=== PATIENT | male | born 1960 | race Caucasian/White ===

== ENCOUNTER 2016-10-09 07:22 | Observation (INO) | payer OTHER ==
[~2016-10-09] VITALS: Ht 172.7 cm; Wt 112.4 kg
[~2016-10-09 07:22] MED LIST: ASPI-496 PO; CHOL100018 PO; CYAN1TAB29 PO; GLUC1TAB55 PO; MULT-658 PO; NAPR220C2 PO; OMEG1CAP24 PO; OMEP-110 PO
[2016-10-09 07:45] VITALS: BP 153/111
[2016-10-09] MEDS ORDERED: SODIUM CHLORIDE 0.9% 1,000 ML IV SCH (07:55)
[2016-10-09] MEDS ORDERED: ASPIRIN 325 MG TABLET EC PO ONE (08:00)
[2016-10-09] MEDS ORDERED: ASPIRIN 325 MG TABLET EC ONE (08:00)
[2016-10-09] MEDS ORDERED: APRE30TA2 PO (08:02)
[2016-10-09] MEDS ORDERED: VERAPAMIL 2.5 MG/ML, 2ML ONE (09:23)
[2016-10-09] MEDS ORDERED: FENTANYL PF 100 MCG/2ML ONE (09:23)
[2016-10-09] MEDS ORDERED: LIDOCAINE 2%, 20ML ONE (09:23)
[2016-10-09] MEDS ORDERED: MIDAZOLAM 1 MG/ML, 5ML ONE (09:23)
[2016-10-09] MEDS ORDERED: TICAGRELOR 90 MG TABLET ONE (09:23)
[2016-10-09] MEDS ORDERED: BIVALIRUDIN 250 MG ONE ×2 (09:23→10:18)
[2016-10-09] MEDS ORDERED: HEPARIN 1,000 UNITS/ML, 10ML ONE (09:23)
[2016-10-09] MEDS ORDERED: ONDANSETRON 2MG/ML, 2ML IVPush PRN (11:00)
[2016-10-09] MEDS ORDERED: BIVALIRUDIN 250 MG in DEXTROSE 5% 50 ML IV SCH (11:00)
[2016-10-09] MEDS: SODIUM CHLORIDE 0.9% 1,000 ML IV SCH ×2 (12:50→22:14)
[2016-10-09 18:59] VITALS: BP 133/84
[2016-10-09] MEDS ORDERED: ZOLPIDEM 5MG TABLET PO PRN (21:00)
[2016-10-09] MEDS: APREMILAST 30 MG PO SCH (22:14)
[2016-10-09] MEDS: TICAGRELOR 90 MG TABLET PO SCH (22:29)
[2016-10-10 01:17] VITALS: BP 135/83
[2016-10-10] MEDS: SODIUM CHLORIDE 0.9% 1,000 ML IV SCH (02:50)
[2016-10-10 05:03] LABS: BLOOD UREA NITROGEN 13 mg/dL (7-18)
[2016-10-10] MEDS: TICAGRELOR 90 MG TABLET PO SCH (07:23)
[2016-10-10] MEDS: APREMILAST 30 MG PO SCH (07:25)
[2016-10-10] MEDS ORDERED: OMEPRAZOLE 20 MG CAPSULE.DR PO SCH (07:30)
[2016-10-10 07:56] VITALS: BP 136/88
[2016-10-10] MEDS ORDERED: ASPIRIN 81 MG TABLET EC PO SCH (09:00)
[2016-10-10] MEDS ORDERED: NAPROXEN 500 MG TABLET PO SCH (09:00)
[2016-10-10] MEDS ORDERED: OMEGA-3/FISH OIL CAPSULE PO SCH (09:00)
[2016-10-10] MEDS ORDERED: MULTIVITAMIN 1 TABLET PO SCH (09:00)
[2016-10-10] MEDS ORDERED: TICA90TA PO (09:31)
== END 2016-10-10 10:30 | disposition home or self-care (01) ==
LOC: CACL 07:22 → ORIP 10:50 → 5SO 11:30
PROVIDERS: ADMIT Internal Medicine Cardiovascular Disease; ATTEND Internal Medicine Cardiovascular Disease
DX: I25.110 Atherosclerotic heart disease of native coronary artery with unstable angina pectoris (principal); T82.855A Stenosis of coronary artery stent, initial encounter; I25.41 Coronary artery aneurysm; F17.210 Nicotine dependence, cigarettes, uncomplicated; Z98.61 Coronary angioplasty status; Y83.1 Surgical operation with implant of artificial internal device as the cause of abnormal reaction of the patient, or of later complication, without mention of misadventure at the time of the procedure
CPT/HCPCS: 36415; 80048; 82040; 85018; 93005; 93458; 96365; C1725; C1769; C1874; C1887; C1894; C9600; G0378; J0583; J1644; J2250; J3010; J3490; Q9967

== ENCOUNTER 2017-10-29 20:05 | Emergency (ER) | payer OTHER ==
[~2017-10-29] VITALS: Ht 172.7 cm; Wt 115.1 kg
[~2017-10-29 20:05] MED LIST changes: +APRE30TA2 PO; +CHOL100012 PO; -CHOL100018 PO; +TICA90TA PO
[2017-10-29] MEDS ORDERED: ASPIRIN 81 MG TABLET CHEW PO ONE (20:30)
[2017-10-29] MEDS ORDERED: EZET1TAB30 PO (20:46)
[2017-10-29] MEDS ORDERED: PLAVIX (20:46)
[2017-10-29] MEDS ORDERED: NAPR220C2 PO (20:46)
[2017-10-29 20:49] LABS: BASOPHILS # (AUTO) 0.03 x10^3/uL (0-0.1); BASOPHILS % (AUTO) 0 % (0-1); EOSINOPHILS # (AUTO) 0.08 x10^3/uL (0-0.4); EOSINOPHILS % (AUTO) 1 % (1-7); LYMPHOCYTES # (AUTO) 2.33 x10^3/uL (1-3.4); LYMPHOCYTES % (AUTO) 19 % (22-44); MD NO; MEAN CORPUSCULAR HEMOGLOBIN 30.3 pg (27.5-34.5); MEAN CORPUSCULAR HGB CONC 34.3 g/dL (33.2-36.2); MEAN CORPUSCULAR VOLUME 88.4 fL (81-97); MEAN PLATELET VOLUME 8.7 fL (7.4-10.4); MONOCYTES # (AUTO) 0.91 x10^3/uL (0.2-0.8); MONOCYTES % (AUTO) 7 % (2-9); NEUTROPHILS # (AUTO) 8.97 x10^3/uL (1.8-6.8); NEUTROPHILS % (AUTO) 73 % (42-75); PLATELET COUNT 170 x10^3/uL (130-400); RED CELL DISTRIBUTION WIDTH 13.1 % (9.4-14.8)
[2017-10-29 20:55] LABS: ALANINE AMINOTRANSFERASE 87 U/L (12-78); ALBUMIN 4.2 g/dL (3.4-5.0); ANION GAP 9 mmol/L (5-15); CALCIUM 9.2 mg/dL (8.5-10.1); CHLORIDE 108 mmol/L (98-107); CREATININE 1.23 mg/dL (0.7-1.3)
[2017-10-29 20:59] LABS: ALKALINE PHOSPHATASE 99 U/L (45-117); BILIRUBIN,TOTAL 1.1 mg/dL (0.2-1.0); TOTAL PROTEIN 7.9 g/dL (6.4-8.2); TROPONIN I < 0.015 ng/mL (0.000-0.045)
[2017-10-29 21:42] VITALS: BP 124/84
== END 2017-10-29 22:46 | disposition home or self-care (01) ==
LOC: ED 21:23
DX: R07.89 Other chest pain (principal); K21.9 Gastro-esophageal reflux disease without esophagitis; Z87.891 Personal history of nicotine dependence; Z79.82 Long term (current) use of aspirin
CPT/HCPCS: 36415; 71045; 80053; 83690; 84484; 85025; 93005; 99285

== ENCOUNTER → 2018-02-14 | Outpatient (CLI) | payer OTHER ==
[~2018-02-14] MED LIST changes: +EZET1TAB30 PO; +PLAVIX; +REGADENOSON 0.4 MG/5 ML SYRINGE ONE
== END | disposition home or self-care (01) ==
LOC: CFH 12:06 → EDSTATUS 12:30
PROVIDERS: ATTEND Internal Medicine Cardiovascular Disease
DX: Z01.810 Encounter for preprocedural cardiovascular examination (principal); Z87.891 Personal history of nicotine dependence
CPT/HCPCS: 78452; 93017; A9502; J2785

== ENCOUNTER 2018-06-29 14:44 | Inpatient (IN) | payer OTHER ==
[~2018-06-29] VITALS: Ht 172.7 cm; Wt 109.5 kg
[~2018-06-29 14:44] MED LIST changes: -REGADENOSON 0.4 MG/5 ML SYRINGE ONE
[2018-06-29] MEDS ORDERED: LACTATED RINGERS 1,000 ML IV SCH (15:25)
[2018-06-29] MEDS ORDERED: GABAPENTIN 300 MG CAPSULE PO ONE (15:30)
[2018-06-29] MEDS ORDERED: ACETAMINOPHEN 500 MG TABLET PO ONE (15:30)
[2018-06-29] MEDS ORDERED: ATOR40TA78 PO (15:33)
[2018-06-29] MEDS ORDERED: RIVA20TA PO (15:33)
[2018-06-29] MEDS ORDERED: MUPIROCIN NAS (15:33)
[2018-06-29 15:53] VITALS: BP 121/87
[2018-06-29] MEDS ORDERED: PLEASE ENTER HEIGHT AND WEIGHT MC SCH (16:00)
[2018-06-29 16:04] LABS: BASOPHILS # (AUTO) 0.05 x10^3/uL (0-0.1); BASOPHILS % (AUTO) 1 % (0-1); EOSINOPHILS # (AUTO) 0.17 x10^3/uL (0-0.4); EOSINOPHILS % (AUTO) 2 % (1-7); LYMPHOCYTES # (AUTO) 2.19 x10^3/uL (1-3.4); LYMPHOCYTES % (AUTO) 32 % (22-44); MD NO; MEAN CORPUSCULAR HEMOGLOBIN 28.8 pg (27.5-34.5); MEAN CORPUSCULAR HGB CONC 33.9 g/dL (33.2-36.2); MEAN CORPUSCULAR VOLUME 84.9 fL (81-97); MEAN PLATELET VOLUME 8.5 fL (7.4-10.4); MONOCYTES # (AUTO) 0.51 x10^3/uL (0.2-0.8); MONOCYTES % (AUTO) 8 % (2-9); NEUTROPHILS # (AUTO) 3.84 x10^3/uL (1.8-6.8); NEUTROPHILS % (AUTO) 57 % (42-75); PLATELET COUNT 173 x10^3/uL (130-400); RED BLOOD COUNT 5.27 x10^6/uL (4.38-5.82); RED CELL DISTRIBUTION WIDTH 13.9 % (9.4-14.8)
[2018-06-29 16:13] LABS: ANION GAP 9 mmol/L (5-15); CALCIUM 9.5 mg/dL (8.5-10.1); CHLORIDE 108 mmol/L (98-107); CREATININE 0.85 mg/dL (0.7-1.3)
[2018-06-29 16:14] LABS: INTERNATIONAL NORMALIZED RATIO 0.98 (0.93-1.1); PROTHROMBIN TIME 10.4 Seconds (9.6-11.5)
[2018-06-29] MEDS ORDERED: VANCOMYCIN 1,000 MG ONE (16:14)
[2018-06-29] MEDS ORDERED: PROPOFOL 10 MG/ML, 20ML ONE (16:25)
[2018-06-29] MEDS ORDERED: CEFAZOLIN 1,000 MG ONE (16:25)
[2018-06-29] MEDS ORDERED: DEXAMETHASONE 4 MG/ML, 1ML ONE (16:25)
[2018-06-29] MEDS ORDERED: ONDANSETRON 2MG/ML, 2ML ONE (16:25)
[2018-06-29] MEDS ORDERED: METOPROLOL 1 MG/ML, 5ML ONE (16:25)
[2018-06-29] MEDS ORDERED: LABETALOL 5MG/ML, 20ML ONE (16:25)
[2018-06-29] MEDS ORDERED: BUPIVACAINE/PF-EPI 0.5% 1:200K ONE (17:07)
[2018-06-29] MEDS ORDERED: FENTANYL PF 250 MCG/5ML ONE (17:31)
[2018-06-29] MEDS ORDERED: MEPERIDINE/PF 50 MG/ML ONE (17:32)
[2018-06-29] MEDS: LABETALOL 5MG/ML, 20ML IV PRN ×2 (17:37→18:05)
[2018-06-29] MEDS ORDERED: OXYcodone 5 MG/5 ML ORAL.SOL UDC ONE (17:41)
[2018-06-29] MEDS ORDERED: hydrALAzine 20 MG/ML, 1ML ONE (17:41)
[2018-06-29] MEDS ORDERED: HYDROmorphone 2 MG/ML, 1ML ONE (17:41)
[2018-06-29] MEDS ORDERED: FENTANYL PF 100 MCG/2ML ONE (17:41)
[2018-06-29] MEDS: hydrALAzine 20 MG/ML, 1ML IV PRN ×2 (17:44→17:47)
[2018-06-29] MEDS: FENTANYL PF 100 MCG/2ML IV PRN ×2 (17:47→17:56)
[2018-06-29] MEDS: HYDROmorphone 2 MG/ML, 1ML IVPush PRN ×4 (17:48→17:59)
[2018-06-29] MEDS ORDERED: PROMETHAZINE 25 MG/ML, 1ML IV PRN (18:00)
[2018-06-29] MEDS ORDERED: ALBUTEROL SULFATE 2.5 MG/3 ML NPPB PRN (18:00)
[2018-06-29] MEDS ORDERED: MEPERIDINE/PF 25MG/0.5ML IVPush PRN (18:00)
[2018-06-29] MEDS ORDERED: DIAZEPAM 5 MG/ML, 2ML IVPush PRN (18:00)
[2018-06-29] MEDS ORDERED: ACETAMINOPHEN 325 MG TABLET PO PRN ×2 (18:00→20:00)
[2018-06-29] MEDS ORDERED: OXYcodone 5 MG/5 ML ORAL.SOL UDC PO PRN (18:00)
[2018-06-29 19:08] LABS: HEMOGLOBIN A1C 5.6 % (4.2-6.3)
[2018-06-29] MEDS ORDERED: DIPHENHYDRAMINE 25 MG CAPSULE PO PRN (20:00)
[2018-06-29] MEDS ORDERED: BISACODYL 10 MG SUPP PR PRN (20:00)
[2018-06-29] MEDS ORDERED: DIAZEPAM 5 MG TABLET PO PRN (20:00)
[2018-06-29] MEDS ORDERED: ALUMINUM/MAG/SIMETHICONE 30 ML UDC PO PRN (20:00)
[2018-06-29] MEDS ORDERED: OXYcodone/APAP 5/325MG TABLET PO PRN (20:00)
[2018-06-29] MEDS ORDERED: MAGNESIUM HYDROXIDE 8%, 30ML UDC PO PRN (20:00)
[2018-06-29] MEDS ORDERED: PROMETHAZINE 25 MG/ML, 1ML IM PRN (20:00)
[2018-06-29] MEDS ORDERED: LORazepam 1MG TABLET PO PRN (20:00)
[2018-06-29] MEDS ORDERED: LORazepam 2 MG/ML, 1ML IV PRN (20:00)
[2018-06-29] MEDS ORDERED: ONDANSETRON 2MG/ML, 2ML IV PRN (20:00)
[2018-06-29] MEDS ORDERED: SENNA/DOCUSATE TABLET PO PRN (20:00)
[2018-06-29] MEDS: ATORVASTATIN 40 MG TABLET PO SCH (20:23)
[2018-06-29] MEDS: KETOROLAC 30 MG/1 ML IV SCH (20:23)
[2018-06-29] MEDS: DOCUSATE 100 MG CAPSULE PO SCH (20:23)
[2018-06-29] MEDS: HYDROcodone/APAP 10/325 MG TABLET PO PRN (23:18)
[2018-06-29] MEDS: D5%-LACTATED RINGERS 1,000 ML IV SCH (23:19)
[2018-06-30 00:16] VITALS: BP 122/78
[2018-06-30] MEDS: CEFAZOLIN PMX 2GM/50ML 50 ML IVPB SCH ×3 (00:54→16:49)
[2018-06-30] MEDS: HYDROcodone/APAP 10/325 MG TABLET PO PRN ×5 (03:33→21:18)
[2018-06-30 03:36] VITALS: BP 114/73
[2018-06-30] MEDS: KETOROLAC 30 MG/1 ML IV SCH ×2 (04:24→10:08)
[2018-06-30 07:27] VITALS: BP 129/82
[2018-06-30] MEDS: D5%-LACTATED RINGERS 1,000 ML IV SCH ×2 (08:00→16:49)
[2018-06-30] MEDS: DOCUSATE 100 MG CAPSULE PO SCH ×2 (08:00→21:19)
[2018-06-30] MEDS: OMEPRAZOLE 20 MG CAPSULE.DR PO SCH (08:00)
[2018-06-30] MEDS ORDERED: ASPIRIN 325 MG TABLET PO SCH (09:00)
[2018-06-30] MEDS: morphine SULFATE 10 MG/ML, 1ML IV PRN ×3 (10:07→10:24)
[2018-06-30 12:52] VITALS: BP 119/78
[2018-06-30 20:55] VITALS: BP 130/84
[2018-06-30] MEDS: ASPIRIN 325 MG TABLET EC PO SCH (21:18)
[2018-06-30] MEDS: ATORVASTATIN 40 MG TABLET PO SCH (21:19)
[2018-07-01] MEDS: HYDROcodone/APAP 10/325 MG TABLET PO PRN ×4 (01:01→13:54)
[2018-07-01] MEDS: CEFAZOLIN PMX 2GM/50ML 50 ML IVPB SCH ×2 (01:01→08:55)
[2018-07-01 02:10] VITALS: BP 122/75
[2018-07-01] MEDS: D5%-LACTATED RINGERS 1,000 ML IV SCH ×2 (05:00→12:42)
[2018-07-01 08:20] VITALS: BP 128/84
[2018-07-01] MEDS: ASPIRIN 325 MG TABLET EC PO SCH (08:55)
[2018-07-01] MEDS: DOCUSATE 100 MG CAPSULE PO SCH (08:55)
[2018-07-01] MEDS: OMEPRAZOLE 20 MG CAPSULE.DR PO SCH (08:55)
[2018-07-01] MEDS ORDERED: HYDR-3307 PO (09:07)
[2018-07-01] MEDS ORDERED: ASPI-650 PO (09:09)
[2018-07-01 14:04] VITALS: BP 130/83
== END 2018-07-01 15:28 | disposition home or self-care (01) | DRG 467 ==
LOC: ORIP 14:44 → EDSTATUS 16:30 → 4NOR 19:32 → DCLOUNGE 07-01 15:03
PROVIDERS: ADMIT Orthopaedic Surgery; ATTEND Orthopaedic Surgery
PROC: 0SRU0JZ Replacement of Left Knee Joint, Femoral Surface with Synthetic Substitute, Open Approach (ICD-10-PCS; 2018-06-29)
PROC: 3E0T3BZ Introduction of Anesthetic Agent into Peripheral Nerves and Plexi, Percutaneous Approach (ICD-10-PCS; 2018-06-29)
PROC: 0SPU0JZ Removal of Synthetic Substitute from Left Knee Joint, Femoral Surface, Open Approach (ICD-10-PCS; principal; 2018-06-29 16:30)
DX: M24.662 Ankylosis, left knee (principal); M25.062 Hemarthrosis, left knee
CPT/HCPCS: 36415; J7121; 80048; 83036; 85014; 85018; 85025; 85610; 85730; 87070; 87075; 87081; 87176; 87205; 93005; G0378; J0690; J1100; J1170; J1885; J2175; J2405; J2704; J3010; J3370; C1776; J0360; J2270